=== PATIENT | female | born 1975 | race Caucasian/White ===

== ENCOUNTER 2023-04-10 11:44 | Outpatient (CLI) | payer BC, SELFPAY | END 2023-04-10 11:45 | disposition home or self-care (01) | LOC: NFLDREF 04-17 12:25 | PROVIDERS: PCP Dermatology; Referring Provider Dermatology; Visit Provider Family Medicine | DX: Z00.00 Encounter for general adult medical examination without abnormal findings (principal); E66.01 Morbid (severe) obesity due to excess calories; N95.1 Menopausal and female climacteric states; R53.83 Other fatigue; G40.909 Epilepsy, unspecified, not intractable, without status epilepticus; Z79.899 Other long term (current) drug therapy; Z13.220 Encounter for screening for lipoid disorders; Z13.6 Encounter for screening for cardiovascular disorders | CPT/HCPCS: 80053; 80061; 80177; 82627; 82671; 83001; 83002; 84144; 84146; 84443; 86376 ==

== ENCOUNTER 2023-05-06 13:24 | Outpatient (CLI) | payer BC, SELFPAY | END 2023-05-06 13:25 | disposition home or self-care (01) | LOC: NFLDREF 05-08 14:36 | PROVIDERS: PCP Dermatology; Referring Provider Dermatology; Visit Provider Physician Assistant Medical | DX: K57.92 Diverticulitis of intestine, part unspecified, without perforation or abscess without bleeding (principal) | CPT/HCPCS: 87086 ==

== ENCOUNTER 2023-05-13 10:27 | Outpatient (CLI) | payer BC, SELFPAY ==
--- NOTE | 2023-05-13 11:00 | CRLHL7_ITS ---
For Patients: As a result of the Century Cures Act, medical imaging exams and procedure reports are released immediately into your electronic medical record. You may view this report before your referring provider. If you have questions, please contact your health care provider. INDICATION: Diverticulitis TECHNIQUE: Axial images were obtained from the diaphragm to the pubic symphysis. Reformats were obtained in the coronal and sagittal plane. IV Contrast: 74 cc Isovue 370 Oral Contrast: None COMPARISON: None. FINDINGS: Lower chest: Minimal linear scarring within the left lower lobe. Liver: Unremarkable. Normal in size and attenuation. No masses. Gallbladder and bile ducts: Unremarkable. No stones or inflammation. No biliary dilatation. Spleen: Unremarkable. Normal in size without mass. Pancreas: Unremarkable. No mass or inflammation. Adrenal glands: Right adrenal nodule measures 17 millimeters. Left adrenal nodule measures 10 millimeters. Kidneys: Unremarkable. No masses, stones, or hydronephrosis. Vasculature: Unremarkable. GI tract: The stomach is unremarkable. No dilated loops of large or small intestine with a moderate amount of stool within the colon. Appendix unremarkable. Colonic diverticulosis with mild fat stranding surrounding a mid sigmoid diverticulum (series 4, image 66). Pelvis: The bladder is unremarkable. Anteverted uterus with left ovarian cyst measuring 2.8 centimeters. Bones: Unremarkable for age. IMPRESSION: 1. Acute diverticulitis mid sigmoid colon without evidence of abscess. 2. Bilateral indeterminate adrenal nodules, 17 millimeters on the right and 10 millimeters on the left. As clinically desired, adrenal MRI may have improved characterization. Please note that all CT scans at this facility use dose modulation, iterative reconstruction, and/or weight-based dosing when appropriate to reduce radiation dose to as low as reasonably achievable. Dictated by Liu Barahona MD @ 05/15/2023 8:29:11 AM (Electronically Signed)
== END 2023-05-13 10:28 | disposition home or self-care (01) ==
LOC: CT 10:29
PROVIDERS: PCP Family Medicine; Visit Provider Physician Assistant Medical
DX: K57.92 Diverticulitis of intestine, part unspecified, without perforation or abscess without bleeding (principal); E27.9 Disorder of adrenal gland, unspecified
CPT/HCPCS: 74177; Q9967

== ENCOUNTER 2023-07-06 13:07 | Outpatient (CLI) | payer BC, SELFPAY ==
--- NOTE | 2023-07-06 13:20 | MM_ITS ---
Patient: VEENA HARDING Facility:?[facility] Patient ID:?[id number] Site Patient ID:?[id number]. Site :?[id number] Study:?XRay-Breast Bilateral 3D W/CAD-07/06/2023 11:54:24 AM Ordering Physician:Tiffany Final Report: BILATERAL SCREENING MAMMOGRAM WITH COMPUTER-AIDED DETECTION AND TOMOSYNTHESIS TECHNIQUE: CC and MLO views were obtained. These mammographic images have been obtained using full-field digital technique. These mammographic images were interpreted with the benefit of computer-aided detection. Breast Tomosynthesis was used in this interpretation. COMPARISON FILM: 05/22/22, 03/23/17. FINDINGS: The breasts are almost entirely fatty. IMPRESSION: There is no radiographic evidence for malignancy. ASSESSMENT: BI-RADS Category 2: Benign RECOMMENDATION: Routine screening mammogram in 1 year. A lay language report of this examination will be provided to the patient. Sai Ford M.D. Diagnostic Radiologist [email or web address] DSM/sp R& Transcribed: 4:07 p.m. SP/Dictated by: Sai Ford MD @ 07/15/2023 12:33:00 PM Signed by:?Sai Ford MD @07/15/2023 4:15:25 PM (Electronic Signature)
== END 2023-07-06 13:08 | disposition home or self-care (01) ==
PROVIDERS: PCP Family Medicine; Visit Provider Family Medicine
DX: Z12.31 Encounter for screening mammogram for malignant neoplasm of breast (principal)
CPT/HCPCS: 77063; 77067